=== PATIENT | female | born 1945 | race Asian ===

== ENCOUNTER 2016-12-24 10:11 | Outpatient (CLI) | payer OTHER ==
[2016-12-24 10:28] LABS: PLATELET COUNT 222 K/uL (152-353)
[2016-12-24 11:00] LABS: POTASSIUM 3.6 mmol/L (3.6-5.2)
== END 2016-12-24 11:11 | disposition home or self-care (01) ==
LOC: LABW 10:11
PROVIDERS: Family Medicine
DX: G47.09 Other insomnia (principal); I10 Essential (primary) hypertension; E11.9 Type 2 diabetes mellitus without complications; E78.4 Other hyperlipidemia; E55.9 Vitamin D deficiency, unspecified; R01.1 Cardiac murmur, unspecified; K21.9 Gastro-esophageal reflux disease without esophagitis
CPT/HCPCS: 36415; 80053; 80061; 81000; 82043; 82570; 82652; 83036; 83735; 84439; 84443; 84550; 85027

== ENCOUNTER 2017-11-29 02:35 | Outpatient (CLI) | payer OTHER ==
[2017-11-29] MEDS ORDERED: [UNRECOGNIZED DRUG - OTHER] PO (03:13)
[2017-11-29] MEDS ORDERED: NEURONTIN 100M100 MG PO (03:13)
[2017-11-29] MEDS ORDERED: PRAVACHOL20 MG PO (03:13)
[2017-11-29] MEDS ORDERED: HYDROCHLOROT12.5 M1 PO (03:14)
[2017-11-29] MEDS ORDERED: LOSA50TA PO (03:14)
[2017-11-29] MEDS ORDERED: OMEP40CA PO (03:14)
[2017-11-29] MEDS ORDERED: GLIM4TAB PO (03:14)
[2017-11-29] MEDS ORDERED: DILT30TA24 PO (03:15)
[2017-11-29] MEDS ORDERED: HYDR-3182 PO (03:16)
[2017-11-29] MEDS ORDERED: TRAM50TA PO (03:16)
[2017-11-29] MEDS ORDERED: OMEGA 31000 MG PO (03:17)
[2017-11-29] MEDS ORDERED: TEMA30CA18 PO (03:17)
[2017-11-29] MEDS ORDERED: METFTAB PO (03:17)
[2017-11-29] MEDS ORDERED: HEALTHY EYE1 PO (03:18)
[2017-11-29] MEDS ORDERED: MAGOX 400400 MG PO (14:29)
[2017-11-29] MEDS ORDERED: K-TAB20 MEQ PO (14:32)
== END 2017-11-29 02:41 | disposition short-term general hospital (02) ==
LOC: AMB 02:35
DX: G81.94 Hemiplegia, unspecified affecting left nondominant side (principal); R47.81 Slurred speech
CPT/HCPCS: A0425; A0427

== ENCOUNTER 2017-11-29 02:44 | Observation (INO) | payer OTHER ==
[~2017-11-29] VITALS: Ht 160 cm; Wt 85.3 kg
[2017-11-29 02:45] VITALS: BP 145/83; TEMP 97.3
[2017-11-29] MEDS ORDERED: [UNRECOGNIZED DRUG - OTHER] PO (03:13)
[2017-11-29] MEDS ORDERED: NEURONTIN 100M100 MG PO (03:13)
[2017-11-29] MEDS ORDERED: PRAVACHOL20 MG PO (03:13)
[2017-11-29] MEDS ORDERED: GLIM4TAB PO (03:14)
[2017-11-29] MEDS ORDERED: HYDROCHLOROT12.5 M1 PO (03:14)
[2017-11-29] MEDS ORDERED: LOSA50TA PO (03:14)
[2017-11-29] MEDS ORDERED: OMEP40CA PO (03:14)
[2017-11-29] MEDS ORDERED: DILT30TA24 PO (03:15)
[2017-11-29] MEDS ORDERED: TRAM50TA PO (03:16)
[2017-11-29] MEDS ORDERED: HYDR-3182 PO (03:16)
[2017-11-29] MEDS ORDERED: TEMA30CA18 PO (03:17)
[2017-11-29] MEDS ORDERED: OMEGA 31000 MG PO (03:17)
[2017-11-29] MEDS ORDERED: METFTAB PO (03:17)
[2017-11-29] MEDS ORDERED: HEALTHY EYE1 PO (03:18)
[2017-11-29 03:21] VITALS: BP 142/88
[2017-11-29 03:27] LABS: PLATELET COUNT 207 K/uL (152-353)
[2017-11-29 03:36] LABS: SODIUM 141 mmol/L (136-145)
[2017-11-29 03:49] LABS: PARTIAL THROMBOPLASTIN TIME 25.3 SECONDS (24.5-33.6)
[2017-11-29 03:51] VITALS: BP 141/88
[2017-11-29 04:56] VITALS: BP 126/65; TEMP 97.5; Ht 160 cm; Wt 85.3 kg
--- NOTE | 2017-11-29 05:13 | NUR ---
11/29/14 0415 PT ADMITTED TO ROOM 1121 DX CVA ORIENTED TO ROOM CALL LIGHT WITHIN REACH.SALINE LOCK INTACT TO LEFT AC.CC
[2017-11-29 08:00] VITALS: BP 119/74; TEMP 97.5
[2017-11-29 12:00] VITALS: BP 105/72; TEMP 98.6
[2017-11-29] MEDS ORDERED: MAGOX 400400 MG PO (14:29)
[2017-11-29] MEDS ORDERED: K-TAB20 MEQ PO (14:32)
--- NOTE | 2017-11-29 15:12 | NUR ---
IV D/C'D WITH TIP INTACT PRESSURE DRESSING APPLIED. D/C INSTRUCTIONS GIVEN. PT VERBALIZED UNDERSTANDING.
== END 2017-11-29 15:11 | disposition home or self-care (01) ==
LOC: ED 02:44 → MED/SURG 03:52
DX: E11.649 Type 2 diabetes mellitus with hypoglycemia without coma (principal); E83.42 Hypomagnesemia; E87.6 Hypokalemia; I10 Essential (primary) hypertension; R53.1 Weakness; R20.2 Paresthesia of skin; R29.810 Facial weakness; R47.89 Other speech disturbances; R55 Syncope and collapse; I48.0 Paroxysmal atrial fibrillation; Z86.73 Personal history of transient ischemic attack (TIA), and cerebral infarction without residual deficits; R41.0 Disorientation, unspecified; R40.4 Transient alteration of awareness
CPT/HCPCS: 36415; 80053; 82948; 83036; 83735; 84484; 85027; 85610; 85730; 93005; 94760; 96374; 99220; 99285; G0378; J1650; J7060

== ENCOUNTER 2022-02-23 13:12 | Emergency (ER) | payer OTHER ==
[~2022-02-23] VITALS: Ht 157.5 cm; Wt 69.4 kg
[~2022-02-23 13:12] MED LIST: DILT30TA24 PO; GLIM4TAB PO; HEALTHY EYE1 PO; HYDR-3182 PO; HYDROCHLOROT12.5 M1 PO; K-TAB20 MEQ PO; LOSA50TA PO; MAGOX 400400 MG PO; METFTAB PO; NEURONTIN 100M100 MG PO; OMEGA 31000 MG PO; OMEP40CA PO; PRAVACHOL20 MG PO; TEMA30CA18 PO; TRAM50TA PO; [UNRECOGNIZED DRUG - OTHER] PO
[2022-02-23 13:19] VITALS: TEMP 97.6
[2022-02-23 13:57] LABS: PLATELET COUNT 265 K/uL (152-353)
[2022-02-23 14:05] LABS: POTASSIUM 3.8 mmol/L (3.6-5.2)
[2022-02-23 16:00] VITALS: BP 136/81
== END 2022-02-23 16:00 | disposition home or self-care (01) ==
LOC: ED 13:12
PROVIDERS: Emergency Medicine Emergency Medical Services
DX: G51.0 Bell's palsy (principal); E83.42 Hypomagnesemia
CPT/HCPCS: 80048; 83735; 85027; 93005; 96360; 96365; 99284; J2930; J3475